=== PATIENT | male | born 2000 | race Native Hawaiian/Other Pacific Islander ===

== ENCOUNTER 2021-03-08 19:50 | Emergency (ER) | payer OTHER ==
[~2021-03-08] VITALS: Ht 160 cm; Wt 67.3 kg
[2021-03-08] MEDS ORDERED: DOXYCYCLINE HYCLATE 100MG TABLET PO ONE (21:25)
[2021-03-08] MEDS ORDERED: DOXY-443 PO (21:51)
[2021-03-08 21:58] VITALS: BP 116/72
== END 2021-03-08 22:01 | disposition home or self-care (01) ==
LOC: M ED 19:50
DX: L02.511 Cutaneous abscess of right hand (principal); L03.90 Cellulitis, unspecified

== ENCOUNTER 2022-07-28 16:41 | Inpatient (IN) | payer OTHER ==
[~2022-07-28] VITALS: Ht 160 cm; Wt 65.2 kg
[~2022-07-28 16:41] MED LIST: DOXY-443 PO
[2022-07-28] MEDS ORDERED: IBUP1TAB7 PO (17:03)
[2022-07-28] MEDS ORDERED: OXYC1TAB23 PO (17:03)
[2022-07-28] MEDS ORDERED: ACET-683 PO (17:03)
[2022-07-28] MEDS ORDERED: AMOX875T2 PO (17:03)
[2022-07-28] MEDS ORDERED: ISOVUE-370 76% 100ML VIAL As Ordered ONE (17:44)
[2022-07-28] MEDS ORDERED: AMPICILLIN SOD/SULBACTAM SOD 3 GM in D5W MINI-BAG PLUS 100 ML IV ONE (18:40)
[2022-07-28] MEDS ORDERED: KETOROLAC 30 MG/ML 1ML VIAL IV ONE (18:50)
[2022-07-28 19:11] LABS: BASO % 0.2 % (0.0-1.0); EOS % 0.3 % (0.0-3.0); HEMATOCRIT 48.3 % (42.0-52.0); HEMOGLOBIN 17.1 g/dl (13.5-17.5); LYMPH # 1.8 10^3/uL (1.5-5.0); LYMPH % 12.1 % (24.0-44.0); MEAN CORPUSCULAR HEMOGLOBIN 30.3 pg (27.0-33.0); MEAN CORPUSCULAR HGB CONC 35.4 g/dl (32.0-36.5); MEAN CORPUSCULAR VOLUME 85.5 fl (80.0-96.0); MONO # 1.1 10^3/uL (0.0-0.8); MONO % 7.4 % (2.0-8.0); NEUTROPHILS # 12.1 10^3/uL (1.5-8.5); NEUTROPHILS % 79.7 % (36.0-66.0); PLATELET COUNT, AUTOMATED 209 10^3/uL (150-450); RED BLOOD COUNT 5.65 10^6/uL (4.30-6.10); WHITE BLOOD COUNT 15.2 10^3/uL (4.0-10.0)
[2022-07-28 19:19] LABS: ERYTHROCYTE SEDIMENTATION RATE 23 mm/hr (0-15)
[2022-07-28] MEDS ORDERED: GUMMCHW PO (19:34)
[2022-07-28 19:40] LABS: ALBUMIN 4.4 G/DL (3.2-5.2); ALKALINE PHOSPHATASE 90 U/L (46-116); ALT/SGPT 14 U/L (7.0-40); AST/SGOT 14 U/L (<34); BILIRUBIN,TOTAL 1.2 MG/DL (0.3-1.2); BLOOD UREA NITROGEN 15 MG/DL (9-23); CALCIUM LEVEL 9.5 MG/DL (8.5-10.1); CARBON DIOXIDE LEVEL 30 MMOL/L (20-31); CHLORIDE LEVEL 100 MMOL/L (98-107); CREATININE FOR GFR 0.86 MG/DL (0.70-1.30); GLOMERULAR FILTRATION RATE > 60.0 (>60); GLUCOSE, FASTING 87 MG/DL (60-100); SODIUM LEVEL 137 MMOL/L (136-145); TOTAL PROTEIN 7.5 G/DL (5.7-8.2)
[2022-07-28] MEDS ORDERED: HOME MED LIST COMPLETE! XX SCH (19:40)
[2022-07-28 20:08] LABS: RSV AMPLIFICATION NEGATIVE (NEGATIVE)
[2022-07-28] MEDS ORDERED: ACETAMINOPHEN TAB 650MG DOSE (2X325MG) PO PRN (20:20)
[2022-07-28] MEDS ORDERED: KETOROLAC 30 MG/ML 1ML VIAL IV PRN (20:20)
[2022-07-28] MEDS ORDERED: MORPHINE 2 MG/ML 1ML VIAL IV ONE (20:20)
[2022-07-28 21:30] VITALS: BP 144/76
[2022-07-29] VITALS: BP 152/67
[2022-07-29] MEDS: LR 1,000 ML IV SCH ×3 (00:36→20:41)
[2022-07-29] MEDS: AMPICILLIN SOD/SULBACTAM SOD 3 GM in D5W MINI-BAG PLUS 100 ML IV SCH ×4 (00:36→18:19)
[2022-07-29] MEDS: PERCOCET 5MG/325MG TAB PO PRN ×2 (00:45→07:36)
[2022-07-29 04:00] VITALS: BP 127/71
[2022-07-29 06:54] LABS: HEMATOCRIT 46.5 % (42.0-52.0); HEMOGLOBIN 16.5 g/dl (13.5-17.5); MEAN CORPUSCULAR HGB CONC 35.5 g/dl (32.0-36.5); MEAN CORPUSCULAR VOLUME 84.5 fl (80.0-96.0); PLATELET COUNT, AUTOMATED 200 10^3/uL (150-450); WHITE BLOOD COUNT 10.8 10^3/uL (4.0-10.0)
[2022-07-29 07:26] LABS: ALKALINE PHOSPHATASE 81 U/L (46-116); ALT/SGPT 11 U/L (7.0-40); AST/SGOT 13 U/L (<34); BILIRUBIN,TOTAL 1.1 MG/DL (0.3-1.2); BLOOD UREA NITROGEN 13 MG/DL (9-23); CALCIUM LEVEL 9.2 MG/DL (8.5-10.1); CARBON DIOXIDE LEVEL 28 MMOL/L (20-31); CHLORIDE LEVEL 101 MMOL/L (98-107); CREATININE FOR GFR 0.87 MG/DL (0.70-1.30); GLOMERULAR FILTRATION RATE > 60.0 (>60); GLUCOSE, FASTING 87 MG/DL (60-100); POTASSIUM SERUM 4.2 MMOL/L (3.5-5.1); SODIUM LEVEL 137 MMOL/L (136-145); TOTAL PROTEIN 6.7 G/DL (5.7-8.2)
[2022-07-29 08:00] VITALS: BP 146/67
[2022-07-29] MEDS ORDERED: ACETAMINOPHEN TAB 650MG DOSE (2X325MG) PO PRN (10:50)
[2022-07-29] MEDS ORDERED: ACETAMINOPHEN 500 MG TAB PO SCH (12:00)
[2022-07-29 16:00] VITALS: BP 128/72
[2022-07-30] VITALS: BP 104/51
[2022-07-30] MEDS: AMPICILLIN SOD/SULBACTAM SOD 3 GM in D5W MINI-BAG PLUS 100 ML IV SCH ×2 (00:57→05:46)
[2022-07-30 06:36] LABS: BASO % 0.1 % (0.0-1.0); HEMATOCRIT 45.9 % (42.0-52.0); HEMOGLOBIN 16.2 g/dl (13.5-17.5); LYMPH # 0.8 10^3/uL (1.5-5.0); LYMPH % 11.1 % (24.0-44.0); MEAN CORPUSCULAR HEMOGLOBIN 30.3 pg (27.0-33.0); MEAN CORPUSCULAR HGB CONC 35.3 g/dl (32.0-36.5); MEAN CORPUSCULAR VOLUME 85.8 fl (80.0-96.0); MONO # 0.1 10^3/uL (0.0-0.8); MONO % 1.6 % (2.0-8.0); NEUTROPHILS # 6.1 10^3/uL (1.5-8.5); NEUTROPHILS % 87.1 % (36.0-66.0); PLATELET COUNT, AUTOMATED 214 10^3/uL (150-450); RED BLOOD COUNT 5.35 10^6/uL (4.30-6.10)
[2022-07-30 07:03] LABS: BLOOD UREA NITROGEN 12 MG/DL (9-23); CALCIUM LEVEL 9.3 MG/DL (8.5-10.1); CARBON DIOXIDE LEVEL 28 MMOL/L (20-31); CHLORIDE LEVEL 103 MMOL/L (98-107); CREATININE FOR GFR 0.73 MG/DL (0.70-1.30); GLOMERULAR FILTRATION RATE > 60.0 (>60); GLUCOSE, FASTING 154 MG/DL (60-100); POTASSIUM SERUM 4.2 MMOL/L (3.5-5.1); SODIUM LEVEL 140 MMOL/L (136-145)
[2022-07-30 08:30] VITALS: BP 135/66
[2022-07-30] MEDS ORDERED: DEXA4TA PO ×2 (08:46→10:07)
[2022-07-30] MEDS ORDERED: AMOX875T2 PO (08:46)
== END 2022-07-30 11:45 | disposition home or self-care (01) | DRG 863 ==
LOC: M ED 16:41 → M ED INP 20:19 → M PED 21:30
PROVIDERS: ADMIT Internal Medicine; ATTEND Internal Medicine
DX: T81.49XA Infection following a procedure, other surgical site, initial encounter (principal); K04.7 Periapical abscess without sinus; F41.9 Anxiety disorder, unspecified